=== PATIENT | female | born 1940 | race Caucasian/White ===

== ENCOUNTER 2020-08-25 06:27 | Inpatient (IN) | payer MEDICARE ==
[2020-08-25] MEDS ORDERED: Oxymetazoline HCl 0.05% (30 ML BOT) ONE (06:35)
[2020-08-25] MEDS ORDERED: Dexmedetomidine 200 MCG/2 ML VIAL ONE (07:12)
[2020-08-25] MEDS ORDERED: Ketamine 50 MG/ML (10ML VIAL) ONE (07:12)
[2020-08-25] MEDS ORDERED: Lidocaine 4% Topical Sol 50 ML BOT ONE (07:15)
[2020-08-25] MEDS ORDERED: Midazolam HCl 2 mg/2 ml Vial ONE (07:16)
[2020-08-25] MEDS ORDERED: Fentanyl 100 MCG/2 ML VIAL ONE ×2 (07:16→08:58)
[2020-08-25] MEDS ORDERED: Lidocaine 1% w/Epinephrine 1:100K 20 ML VIAL ONE ×2 (07:16→08:59)
[2020-08-25] MEDS ORDERED: Glycopyrrolate 0.2 MG/ML 5 ML SYRINGE ONE (07:28)
[2020-08-25] MEDS ORDERED: ePHEDrine Sulfate 50 MG/10 ML VIAL ONE (07:28)
[2020-08-25] MEDS ORDERED: PHENYLEPHRINE-NS 100 MCG/ML 10 ML SYRINGE ONE (07:28)
[2020-08-25] MEDS ORDERED: Rocuronium Bromide 10 MG/ML (10ML VIAL) ONE (07:28)
[2020-08-25] MEDS ORDERED: AFRIN NASAL MIST 15 ML BOT ONE (07:38)
[2020-08-25] MEDS ORDERED: Albuterol Sulfate HFA (OR ONLY) ONE (08:07)
[2020-08-25 08:46] LABS: Actual Bicarbonate (HCO3a) 24.9 mEq/L (22-28); Base Excess (BEa) 0.7 mEq/L (-2.0 to +3.0); CO2 Tension 38.7 mmHg (35.0-45.0); Carboxyhemoglobin (COHb) 0.7 gm% (0.0-3.0); Hemoglobin (Hb) 11.7 g/dL (12.0-16.0); Potassium - ABG Lab 3.81 mmol/L (3.70-5.30); pH, Arterial 7.43 (7.35-7.45)
[2020-08-25 08:47] LABS: ALV-art Gradient 192.725 mmHg (0-20); O2 Tension (PaO2), arterial 44.1 mmHg (> 60.0); Puncture Site RBA
[2020-08-25] MEDS ORDERED: Ondansetron PF 4 MG/2 ML Vial IVP PRN (09:06)
[2020-08-25] MEDS ORDERED: Calcium Carbonate 500 MG ChewTAB PO PRN (09:06)
[2020-08-25] MEDS ORDERED: Senokot S 8.6-50 MG TAB PO PRN (09:06)
[2020-08-25] MEDS ORDERED: Electrolyte Replacement Protocol 1 EACH FS ONE (09:06)
[2020-08-25] MEDS ORDERED: Ventilator Sedation Protocol 1 EACH FS ONE (09:06)
[2020-08-25] MEDS ORDERED: Bisacodyl 10 MG SUPP PR PRN (09:06)
[2020-08-25] MEDS ORDERED: Guaifenesin DM 100-10/5 ML UDCUP PO PRN (09:06)
[2020-08-25] MEDS ORDERED: Acetaminophen 650 MG Suppository PR PRN (09:06)
[2020-08-25] MEDS ORDERED: Acetaminophen 325 MG TAB PO PRN (09:06)
[2020-08-25] MEDS ORDERED: Norepinephrine 8 MG/0.9% NS 250 ML IVPB PRN (09:12)
[2020-08-25] MEDS ORDERED: Ventilator Sedation Protocol 1 EACH FS SCH (09:15)
[2020-08-25] MEDS ORDERED: Electrolyte Replacement Protocol 1 EACH FS PRN (09:15)
[2020-08-25] MEDS: Sodium Chloride 0.9% 1,000 ML IV SCH ×2 (09:15→21:13)
[2020-08-25] MEDS ORDERED: Dextrose 5% in Water 1,000 ML IV PRN (09:24)
[2020-08-25] MEDS ORDERED: Dextrose 50% Abboject 50 ML SYRINGE SLOW IVP PRN (09:24)
[2020-08-25] MEDS ORDERED: Fentanyl CADD 100 ML ONE (09:30)
[2020-08-25 09:42] LABS: #Eosinphils 0.1 thou/uL (0.0-0.7); #Lymphocytes 0.8 thou/uL (1.20-3.40); #Monocytes 0.4 thou/uL (0.11-0.59); %Basophils 0.2 % (0.0-1.0); %Eosinophils 1.3 % (0.0-10.0); %Lymphocytes 15.1 % (21.0-51.0); %Monocytes 7.2 % (0.0-10.0); %Neutrophils 76.3 % (42.0-75.0); Hemoglobin 13.2 g/dL (12.0-16.0); Mean Corpuscular HGB CONC 31.2 g/dL (32.0-36.0); Mean Corpuscular Hemoglobin 27.1 pg (27.0-31.0); Mean Platelet Volume 10.3 fL (7.4-10.4); Platelet Count 206 thou/uL (130-400); RBC Distribution Width 14.7 % (11.5-14.5); Red Blood Cell (RBC) Count 4.86 mill/uL (4.20-5.40); White Blood Cell (WBC) Count 5.2 thou/uL (4.8-10.8)
[2020-08-25] MEDS ORDERED: Fentanyl CADD 100 ML IV SCH (09:45)
[2020-08-25] MEDS ORDERED: DISCONTINUE PREVIOUS NARCOTIC PAIN MEDICATIONS AND BENZODIAZEPINES FS SCH (09:45)
[2020-08-25] MEDS ORDERED: Lorazepam 2 MG/ML VIAL SLOW IVP PRN (09:45)
[2020-08-25] MEDS ORDERED: Fentanyl BOLUS 250 ML IVPB PRN (09:45)
[2020-08-25] MEDS ORDERED: Morphine 2 MG/ML VIAL SLOW IVP PRN (09:45)
[2020-08-25] MEDS ORDERED: Propofol BOLUS 1,000 MG/100 ML VIAL IV PRN (09:45)
[2020-08-25 09:50] LABS: PTT 29.5 sec (22.9-36.1); Prothrombin Time 13.8 sec (12.0-14.7)
[2020-08-25 09:52] LABS: Actual Bicarbonate (HCO3a) 24.8 mEq/L (22-28); CO2 Tension 36.4 mmHg (35.0-45.0); Calcium, Ionized (arterial) 1.23 mmol/L (1.12-1.30); Carboxyhemoglobin (COHb) 0.6 gm% (0.0-3.0); Hemoglobin (Hb) 12.1 g/dL (12.0-16.0); O2 Tension (PaO2), arterial 103.7 mmHg (> 60.0); Potassium - ABG Lab 3.92 mmol/L (3.70-5.30); pH, Arterial 7.45 (7.35-7.45)
[2020-08-25 09:55] LABS: Puncture Site RBA
[2020-08-25 10:22] LABS: Ferritin 55.83 ng/mL (10-291); Thyroid Stimulating Hormone 0.7927 uIU/mL (0.35-4.94)
[2020-08-25 11:04] LABS: Albumin 3.3 g/dL (3.4-4.8)
[2020-08-25 11:06] LABS: Calcium 9.3 mg/dL (7.8-10.44); Chloride 101 mmol/L (98-107); Potassium 3.9 mmol/L (3.5-5.1); Sodium 133 mmol/L (136-145)
[2020-08-25 11:07] LABS: Globulin 3.4 g/dL (2.4-3.5); Glucose 184 mg/dL (83-110); Protein, Total 6.7 g/dL (5.8-8.1)
[2020-08-25 11:08] LABS: Anion Gap 16 mmol/L (10-20); Carbon Dioxide 20 mmol/L (23-31)
[2020-08-25 11:09] LABS: Bilirubin, Total 0.5 mg/dL (0.2-1.2)
[2020-08-25 11:10] LABS: Alkaline Phosphatase 49 U/L (40-110); Calc. Creatinine Clearance 94 mL/min (70-130)
[2020-08-25 11:11] LABS: BUN (Urea Nitrogen) 15 mg/dL (9.8-20.1)
[2020-08-25 11:12] LABS: AST (SGOT) 25 U/L (5-34)
[2020-08-25 11:13] LABS: ALT (SGPT) 15 U/L (8-55)
[2020-08-25 11:44] LABS: SARS-CoV-2 NAA Rapid Test Not Detected (NotDetected)
[2020-08-25] MEDS: Propofol 1,000 MG/100 ML VIAL IV PRN ×2 (11:57→20:19)
[2020-08-25] MEDS: methylPREDNISolone Sod Succ 40 MG VIAL IVP SCH ×2 (14:49→21:16)
[2020-08-25] MEDS: HumaLOG 300 UNITS/3 ML VIAL SC PRN (21:16)
[2020-08-25] MEDS: Lantus 1000 UNITS/10 ML VIAL SC SCH (21:16)
[2020-08-25] MEDS: Amiodarone 200 MG TAB PER TUBE SCH (21:17)
[2020-08-26] MEDS ORDERED: Fentanyl CADD 100 ML ONE (03:25)
[2020-08-26 04:27] LABS: Anion Gap 13 mmol/L (10-20); BUN (Urea Nitrogen) 13 mg/dL (9.8-20.1); Calc. Creatinine Clearance 103 mL/min (70-130); Calcium 8.9 mg/dL (7.8-10.44); Carbon Dioxide 24 mmol/L (23-31); Chloride 103 mmol/L (98-107); Glucose 155 mg/dL (83-110); Sodium 136 mmol/L (136-145)
[2020-08-26 05:05] LABS: #Lymphocytes 0.6 thou/uL (1.20-3.40); #Monocytes 0.3 thou/uL (0.11-0.59); #Neutrophils 4.1 thou/uL (1.40-6.50); %Eosinophils 0.3 % (0.0-10.0); %Lymphocytes 11.6 % (21.0-51.0); %Monocytes 6.4 % (0.0-10.0); %Neutrophils 81.8 % (42.0-75.0); Hemoglobin 9.9 g/dL (12.0-16.0); Mean Corpuscular HGB CONC 31.4 g/dL (32.0-36.0); Mean Corpuscular Hemoglobin 27.3 pg (27.0-31.0); Mean Corpuscular Volume 86.9 fL (78.0-98.0); Mean Platelet Volume 9.5 fL (7.4-10.4); Platelet Count 136 thou/uL (130-400); RBC Distribution Width 14.3 % (11.5-14.5); Red Blood Cell (RBC) Count 3.63 mill/uL (4.20-5.40)
[2020-08-26] MEDS: Levothyroxine Sodium 88 MCG TAB PO SCH (05:37)
[2020-08-26] MEDS: Propofol 1,000 MG/100 ML VIAL IV PRN (05:37)
[2020-08-26] MEDS: Sodium Chloride 0.9% 1,000 ML IV SCH (05:38)
[2020-08-26] MEDS: methylPREDNISolone Sod Succ 40 MG VIAL IVP SCH ×3 (05:38→22:27)
[2020-08-26 07:25] LABS: Actual Bicarbonate (HCO3a) 22.8 mEq/L (22-28); Base Excess (BEa) -0.3 mEq/L (-2.0 to +3.0); CO2 Tension 33.3 mmHg (35.0-45.0); Calcium, Ionized (arterial) 1.21 mmol/L (1.12-1.30); Carboxyhemoglobin (COHb) 1.3 gm% (0.0-3.0); Hemoglobin (Hb) 14.9 g/dL (12.0-16.0); Potassium - ABG Lab 3.68 mmol/L (3.70-5.30); pH, Arterial 7.45 (7.35-7.45)
[2020-08-26 07:56] LABS: ALV-art Gradient 109.575 mmHg (0-20); Puncture Site RRA
[2020-08-26] MEDS: Multivitamin W/ Minerals 1 TAB PER TUBE SCH (08:48)
[2020-08-26] MEDS: Enoxaparin Sodium 40 MG/0.4 ML SYRINGE SC SCH (08:48)
[2020-08-26] MEDS: Amiodarone 200 MG TAB PER TUBE SCH ×2 (08:49→22:27)
[2020-08-26] MEDS: Fenofibrate Nanocrystallized 145 MG TAB PO SCH (08:58)
[2020-08-26] MEDS: Atorvastatin Calcium 10 MG TAB PER TUBE SCH (08:59)
[2020-08-26] MEDS: Lantus 1000 UNITS/10 ML VIAL SC SCH ×2 (09:00→22:27)
[2020-08-26] MEDS ORDERED: HYDROcodone/Acetaminophen 5/325 mg Tablet PO PRN (11:35)
[2020-08-26] MEDS ORDERED: DC Sedation Protocol FS ONE (11:36)
[2020-08-26] MEDS ORDERED: Sodium Chloride 0.9% 1,000 ML IV SCH (11:41)
[2020-08-26] MEDS: HumaLOG 300 UNITS/3 ML VIAL SC PRN (18:49)
[2020-08-27] MEDS ORDERED: Budesonide 0.25 MG/2 ML NEB ONE (04:16)
[2020-08-27] MEDS ORDERED: Dexamethasone 4 mg/ml Vial ONE (04:21)
[2020-08-27] MEDS ORDERED: Furosemide 40 MG/4 ML VIAL ONE (04:21)
[2020-08-27 04:26] LABS: #Lymphocytes 0.4 thou/uL (1.20-3.40); #Monocytes 0.3 thou/uL (0.11-0.59); #Neutrophils 6.9 thou/uL (1.40-6.50); %Basophils 0.4 % (0.0-1.0); %Eosinophils 0.3 % (0.0-10.0); %Lymphocytes 5.3 % (21.0-51.0); %Monocytes 4.4 % (0.0-10.0); %Neutrophils 89.6 % (42.0-75.0); Hemoglobin 11.4 g/dL (12.0-16.0); Mean Corpuscular Hemoglobin 27.4 pg (27.0-31.0); Mean Corpuscular Volume 88.2 fL (78.0-98.0); Mean Platelet Volume 8.9 fL (7.4-10.4); Platelet Count 179 thou/uL (130-400); RBC Distribution Width 14.2 % (11.5-14.5); Red Blood Cell (RBC) Count 4.18 mill/uL (4.20-5.40); White Blood Cell (WBC) Count 7.7 thou/uL (4.8-10.8)
[2020-08-27] MEDS ORDERED: Racepinephrine 2.25% 0.5 ML NEB NEB SCH (04:30)
[2020-08-27] MEDS ORDERED: Furosemide 20 MG/2 ML VIAL SLOW IVP SCH ×2 (04:30→14:00)
[2020-08-27] MEDS ORDERED: Dexamethasone 4 mg/ml Vial SLOW IVP SCH ×2 (04:30→22:00)
[2020-08-27 04:43] LABS: Anion Gap 9 mmol/L (10-20); BUN (Urea Nitrogen) 10 mg/dL (9.8-20.1); Calc. Creatinine Clearance 97 mL/min (70-130); Calcium 8.8 mg/dL (7.8-10.44); Carbon Dioxide 30 mmol/L (23-31); Chloride 102 mmol/L (98-107); Glucose 139 mg/dL (83-110); Potassium 4.2 mmol/L (3.5-5.1); Sodium 137 mmol/L (136-145)
[2020-08-27 04:47] LABS: Actual Bicarbonate (HCO3a) 29.1 mEq/L (22-28); Base Excess (BEa) -1.4 mEq/L (-2.0 to +3.0); Calcium, Ionized (arterial) 1.24 mmol/L (1.12-1.30); Carboxyhemoglobin (COHb) 0.7 gm% (0.0-3.0); Hemoglobin (Hb) 13.3 g/dL (12.0-16.0); O2 Tension (PaO2), arterial 67.7 mmHg (> 60.0); Potassium - ABG Lab 4.32 mmol/L (3.70-5.30)
[2020-08-27 04:49] LABS: ALV-art Gradient 544.425 mmHg (0-20); CO2 Tension 80.7 mmHg (35.0-45.0); Puncture Site LRA; pH, Arterial 7.18 (7.35-7.45)
[2020-08-27] MEDS: Levothyroxine Sodium 88 MCG TAB PO SCH (05:21)
[2020-08-27] MEDS: methylPREDNISolone Sod Succ 40 MG VIAL IVP SCH ×3 (06:21→21:38)
[2020-08-27] MEDS ORDERED: Pancrelipase DR 12,000 1 CAP FS PRN (08:15)
[2020-08-27] MEDS ORDERED: Sodium Bicarbonate Tab 325 MG TAB PER TUBE PRN (08:15)
[2020-08-27] MEDS: Enoxaparin Sodium 40 MG/0.4 ML SYRINGE SC SCH (08:18)
[2020-08-27] MEDS: Amiodarone 200 MG TAB PER TUBE SCH ×2 (08:19→21:38)
[2020-08-27] MEDS: Fenofibrate Nanocrystallized 145 MG TAB PO SCH (08:19)
[2020-08-27] MEDS: Atorvastatin Calcium 10 MG TAB PER TUBE SCH (08:19)
[2020-08-27] MEDS: Lantus 1000 UNITS/10 ML VIAL SC SCH ×2 (09:00→21:37)
[2020-08-27] MEDS: Multivitamin W/ Minerals 1 TAB PER TUBE SCH (09:38)
[2020-08-27] MEDS ORDERED: Racepinephrine 2.25% 0.5 ML NEB NEB PRN (12:10)
[2020-08-27] MEDS: HumaLOG 300 UNITS/3 ML VIAL SC PRN (16:32)
[2020-08-27] MEDS: Budesonide 0.5 MG/2 ML NEB NEB SCH (19:33)
[2020-08-28] MEDS: HumaLOG 300 UNITS/3 ML VIAL SC PRN ×3 (04:12→21:20)
[2020-08-28 04:17] LABS: #Lymphocytes 0.2 thou/uL (1.20-3.40); #Monocytes 0.3 thou/uL (0.11-0.59); %Eosinophils 0.3 % (0.0-10.0); %Lymphocytes 6.5 % (21.0-51.0); %Monocytes 7.2 % (0.0-10.0); Hemoglobin 10.1 g/dL (12.0-16.0); Mean Corpuscular HGB CONC 31.5 g/dL (32.0-36.0); Mean Corpuscular Hemoglobin 27.4 pg (27.0-31.0); Mean Corpuscular Volume 87.2 fL (78.0-98.0); Mean Platelet Volume 8.7 fL (7.4-10.4); Platelet Count 139 thou/uL (130-400); RBC Distribution Width 13.7 % (11.5-14.5); Red Blood Cell (RBC) Count 3.69 mill/uL (4.20-5.40); White Blood Cell (WBC) Count 3.5 thou/uL (4.8-10.8)
[2020-08-28 04:39] LABS: Anion Gap 13 mmol/L (10-20); BUN (Urea Nitrogen) 14 mg/dL (9.8-20.1); Calc. Creatinine Clearance 107 mL/min (70-130); Calcium 8.5 mg/dL (7.8-10.44); Carbon Dioxide 31 mmol/L (23-31); Chloride 97 mmol/L (98-107); Glucose 244 mg/dL (83-110); Potassium 3.5 mmol/L (3.5-5.1); Sodium 137 mmol/L (136-145)
[2020-08-28] MEDS: Levothyroxine Sodium 88 MCG TAB PO SCH (06:36)
[2020-08-28] MEDS: methylPREDNISolone Sod Succ 40 MG VIAL IVP SCH (06:37)
[2020-08-28] MEDS: Budesonide 0.5 MG/2 ML NEB NEB SCH ×2 (08:04→20:09)
[2020-08-28] MEDS: Potassium Chloride 20 MEQ in Premix Bag 1 BAG IVPB SCH ×2 (08:14→10:37)
[2020-08-28] MEDS: Dexamethasone 4 mg/ml Vial SLOW IVP SCH ×3 (08:15→21:18)
[2020-08-28] MEDS: Multivitamin W/ Minerals 1 TAB PER TUBE SCH (08:15)
[2020-08-28] MEDS: Fenofibrate Nanocrystallized 145 MG TAB PO SCH (08:15)
[2020-08-28] MEDS: Atorvastatin Calcium 10 MG TAB PER TUBE SCH (08:15)
[2020-08-28] MEDS: Amiodarone 200 MG TAB PER TUBE SCH ×2 (08:15→21:17)
[2020-08-28] MEDS: Enoxaparin Sodium 40 MG/0.4 ML SYRINGE SC SCH (08:16)
[2020-08-28] MEDS: Lantus 1000 UNITS/10 ML VIAL SC SCH ×2 (08:16→21:21)
[2020-08-28] MEDS ORDERED: Pantoprazole 40 MG VIAL IVP SCH (12:45)
[2020-08-28] MEDS: Piperacillin/Tazobactam 3.375 GM in Sodium Chloride 0.9% 100 ML IVPB SCH ×2 (12:52→20:30)
[2020-08-28 14:55] LABS: Potassium 4.3 mmol/L (3.5-5.1)
[2020-08-28] MEDS ORDERED: Ampicillin/Sulbactam 1.5 GM in Sodium Chloride 0.9% 100 ML IVPB SCH (18:00)
[2020-08-28] MEDS: Pantoprazole 40 MG VIAL IVP SCH (21:18)
[2020-08-29] MEDS: Piperacillin/Tazobactam 3.375 GM in Sodium Chloride 0.9% 100 ML IVPB SCH ×4 (01:53→20:01)
[2020-08-29 04:03] LABS: #Lymphocytes 0.4 thou/uL (1.20-3.40); #Monocytes 0.4 thou/uL (0.11-0.59); #Neutrophils 3.5 thou/uL (1.40-6.50); %Basophils 0.2 % (0.0-1.0); %Eosinophils 0.3 % (0.0-10.0); %Lymphocytes 10.3 % (21.0-51.0); %Monocytes 9.2 % (0.0-10.0); %Neutrophils 80.1 % (42.0-75.0); Hemoglobin 11.3 g/dL (12.0-16.0); Mean Corpuscular HGB CONC 30.6 g/dL (32.0-36.0); Mean Corpuscular Hemoglobin 26.9 pg (27.0-31.0); Mean Corpuscular Volume 87.7 fL (78.0-98.0); Mean Platelet Volume 8.7 fL (7.4-10.4); Platelet Count 138 thou/uL (130-400); RBC Distribution Width 13.8 % (11.5-14.5); Red Blood Cell (RBC) Count 4.19 mill/uL (4.20-5.40); White Blood Cell (WBC) Count 4.3 thou/uL (4.8-10.8)
[2020-08-29 04:27] LABS: Anion Gap 12 mmol/L (10-20); BUN (Urea Nitrogen) 15 mg/dL (9.8-20.1); Calc. Creatinine Clearance 103 mL/min (70-130); Carbon Dioxide 35 mmol/L (23-31); Chloride 94 mmol/L (98-107); Glucose 227 mg/dL (83-110); Sodium 137 mmol/L (136-145)
[2020-08-29] MEDS: Levothyroxine Sodium 88 MCG TAB PO SCH (05:02)
[2020-08-29] MEDS: Budesonide 0.5 MG/2 ML NEB NEB SCH ×2 (08:15→19:28)
[2020-08-29] MEDS: Multivitamin W/ Minerals 1 TAB PER TUBE SCH (09:19)
[2020-08-29] MEDS: Enoxaparin Sodium 40 MG/0.4 ML SYRINGE SC SCH (09:19)
[2020-08-29] MEDS: Pantoprazole 40 MG VIAL IVP SCH ×2 (09:19→20:07)
[2020-08-29] MEDS: Amiodarone 200 MG TAB PER TUBE SCH ×2 (09:52→20:07)
[2020-08-29] MEDS: Dexamethasone 4 mg/ml Vial SLOW IVP SCH ×3 (09:52→20:07)
[2020-08-29] MEDS: Lantus 1000 UNITS/10 ML VIAL SC SCH ×2 (09:52→20:08)
[2020-08-29] MEDS: Atorvastatin Calcium 10 MG TAB PER TUBE SCH (09:55)
[2020-08-29] MEDS: Fenofibrate Nanocrystallized 145 MG TAB PO SCH (09:55)
[2020-08-29] MEDS: HumaLOG 300 UNITS/3 ML VIAL SC PRN ×2 (18:17→20:08)
[2020-08-29] MEDS ORDERED: Metoprolol Tartrate 5 MG/5 ML VIAL IVP SCH (21:15)
[2020-08-29] MEDS ORDERED: Metoprolol Tartrate 5 MG/5 ML VIAL IVP PRN (21:20)
[2020-08-30] MEDS: Piperacillin/Tazobactam 3.375 GM in Sodium Chloride 0.9% 100 ML IVPB SCH ×4 (01:51→20:50)
[2020-08-30 04:03] LABS: Anion Gap 11 mmol/L (10-20); BUN (Urea Nitrogen) 17 mg/dL (9.8-20.1); Calc. Creatinine Clearance 99 mL/min (70-130); Calcium 8.9 mg/dL (7.8-10.44); Carbon Dioxide 36 mmol/L (23-31); Chloride 96 mmol/L (98-107); Glucose 219 mg/dL (83-110); Potassium 3.8 mmol/L (3.5-5.1); Sodium 139 mmol/L (136-145)
[2020-08-30 04:51] LABS: #Lymphocytes 0.3 thou/uL (1.20-3.40); #Monocytes 0.3 thou/uL (0.11-0.59); #Neutrophils 3.5 thou/uL (1.40-6.50); %Eosinophils 0.3 % (0.0-10.0); %Lymphocytes 8.3 % (21.0-51.0); %Monocytes 7.6 % (0.0-10.0); %Neutrophils 83.8 % (42.0-75.0); Hemoglobin 10.7 g/dL (12.0-16.0); Mean Corpuscular HGB CONC 29.8 g/dL (32.0-36.0); Mean Corpuscular Hemoglobin 26.2 pg (27.0-31.0); Mean Corpuscular Volume 87.9 fL (78.0-98.0); Mean Platelet Volume 8.4 fL (7.4-10.4); Platelet Count 157 thou/uL (130-400); RBC Distribution Width 13.8 % (11.5-14.5); RBC Morphology Normal; Red Blood Cell (RBC) Count 4.08 mill/uL (4.20-5.40); White Blood Cell (WBC) Count 4.2 thou/uL (4.8-10.8)
[2020-08-30] MEDS: Levothyroxine Sodium 88 MCG TAB PO SCH (05:10)
[2020-08-30] MEDS: Budesonide 0.5 MG/2 ML NEB NEB SCH ×2 (08:11→18:28)
[2020-08-30] MEDS: Enoxaparin Sodium 40 MG/0.4 ML SYRINGE SC SCH (08:50)
[2020-08-30] MEDS: Dexamethasone 4 mg/ml Vial SLOW IVP SCH ×3 (08:52→20:51)
[2020-08-30] MEDS: Multivitamin W/ Minerals 1 TAB PER TUBE SCH (08:58)
[2020-08-30] MEDS: Fenofibrate Nanocrystallized 145 MG TAB PO SCH (08:59)
[2020-08-30] MEDS: Atorvastatin Calcium 10 MG TAB PER TUBE SCH (08:59)
[2020-08-30] MEDS: Pantoprazole 40 MG GRANULES PACKET PER TUBE SCH ×2 (08:59→20:51)
[2020-08-30] MEDS: Amiodarone 200 MG TAB PER TUBE SCH ×2 (09:02→20:51)
[2020-08-30] MEDS: Lantus 1000 UNITS/10 ML VIAL SC SCH ×2 (09:15→21:09)
[2020-08-30] MEDS ORDERED: hydrALAZINE 20 MG/ML VIAL SLOW IVP PRN (13:24)
[2020-08-30] MEDS ORDERED: Lidocaine 1% w/Epinephrine 1:100K 20 ML VIAL ONE (14:29)
[2020-08-30] MEDS ORDERED: EPINEPHrine 1 MG/ML AMP ONE (14:29)
[2020-08-30] MEDS ORDERED: Fentanyl 100 MCG/2 ML VIAL ONE (14:39)
[2020-08-30] MEDS ORDERED: Lidocaine 1% PF 5 ML VIAL ONE (15:03)
[2020-08-30] MEDS ORDERED: Succinylcholine 200 MG/10 ml SYRINGE FS ONE (15:03)
[2020-08-30] MEDS ORDERED: Ondansetron PF 4 MG/2 ML Vial ONE (15:03)
[2020-08-30] MEDS ORDERED: PROPOFOL 200 MG/20 ML VIAL ONE (15:03)
[2020-08-30] MEDS: HumaLOG 300 UNITS/3 ML VIAL SC PRN (21:10)
[2020-08-31] MEDS: Piperacillin/Tazobactam 3.375 GM in Sodium Chloride 0.9% 100 ML IVPB SCH ×2 (02:45→07:51)
[2020-08-31 04:05] LABS: #Lymphocytes 0.5 thou/uL (1.20-3.40); #Monocytes 0.4 thou/uL (0.11-0.59); #Neutrophils 3.8 thou/uL (1.40-6.50); %Eosinophils 0.3 % (0.0-10.0); %Lymphocytes 10.1 % (21.0-51.0); %Monocytes 8.4 % (0.0-10.0); %Neutrophils 81.2 % (42.0-75.0); Hemoglobin 10.9 g/dL (12.0-16.0); Mean Corpuscular HGB CONC 30.8 g/dL (32.0-36.0); Mean Corpuscular Hemoglobin 26.9 pg (27.0-31.0); Mean Corpuscular Volume 87.3 fL (78.0-98.0); Mean Platelet Volume 8.6 fL (7.4-10.4); Platelet Count 163 thou/uL (130-400); RBC Distribution Width 13.7 % (11.5-14.5); Red Blood Cell (RBC) Count 4.07 mill/uL (4.20-5.40); White Blood Cell (WBC) Count 4.6 thou/uL (4.8-10.8)
[2020-08-31 04:23] LABS: Anion Gap 13 mmol/L (10-20); BUN (Urea Nitrogen) 18 mg/dL (9.8-20.1); Calc. Creatinine Clearance 114 mL/min (70-130); Carbon Dioxide 33 mmol/L (23-31); Chloride 98 mmol/L (98-107); Glucose 116 mg/dL (83-110); Potassium 3.5 mmol/L (3.5-5.1); Sodium 140 mmol/L (136-145)
[2020-08-31] MEDS: Budesonide 0.5 MG/2 ML NEB NEB SCH ×2 (07:10→18:47)
[2020-08-31] MEDS: Levothyroxine Sodium 88 MCG TAB PO SCH (07:34)
[2020-08-31] MEDS: Potassium Chloride 20 MEQ in Premix Bag 1 BAG IVPB SCH ×2 (08:36→18:14)
[2020-08-31] MEDS: Enoxaparin Sodium 40 MG/0.4 ML SYRINGE SC SCH (08:39)
[2020-08-31] MEDS: Multivitamin W/ Minerals 1 TAB PER TUBE SCH (08:39)
[2020-08-31] MEDS: Amiodarone 200 MG TAB PER TUBE SCH ×2 (08:39→21:00)
[2020-08-31] MEDS: Atorvastatin Calcium 10 MG TAB PER TUBE SCH (08:39)
[2020-08-31] MEDS: Fenofibrate Nanocrystallized 145 MG TAB PO SCH (08:39)
[2020-08-31] MEDS: predniSONE 20 MG TAB PER TUBE SCH (08:39)
[2020-08-31] MEDS: Pantoprazole 40 MG GRANULES PACKET PER TUBE SCH ×2 (08:40→21:00)
[2020-08-31] MEDS: Lantus 1000 UNITS/10 ML VIAL SC SCH ×2 (08:42→21:01)
[2020-08-31] MEDS ORDERED: Potassium Bicarbonate/Cit Ac 20 MEQ TAB PER TUBE SCH (10:15)
[2020-08-31] MEDS: HumaLOG 300 UNITS/3 ML VIAL SC PRN ×2 (16:36→21:02)
[2020-08-31] MEDS: Amoxicillin/Potassium Clav 875 MG TAB PO SCH (21:00)
[2020-09-01 03:41] LABS: #Eosinphils 0.1 thou/uL (0.0-0.7); #Monocytes 0.5 thou/uL (0.11-0.59); #Neutrophils 3.4 thou/uL (1.40-6.50); %Eosinophils 1.1 % (0.0-10.0); %Lymphocytes 19.9 % (21.0-51.0); %Monocytes 9.7 % (0.0-10.0); %Neutrophils 69.2 % (42.0-75.0); Hemoglobin 10.9 g/dL (12.0-16.0); Mean Corpuscular HGB CONC 29.9 g/dL (32.0-36.0); Mean Platelet Volume 8.7 fL (7.4-10.4); Platelet Count 139 thou/uL (130-400); RBC Distribution Width 13.9 % (11.5-14.5); Red Blood Cell (RBC) Count 4.19 mill/uL (4.20-5.40); White Blood Cell (WBC) Count 4.9 thou/uL (4.8-10.8)
[2020-09-01 03:55] LABS: Anion Gap 13 mmol/L (10-20); BUN (Urea Nitrogen) 24 mg/dL (9.8-20.1); Calc. Creatinine Clearance 99 mL/min (70-130); Calcium 9.2 mg/dL (7.8-10.44); Carbon Dioxide 31 mmol/L (23-31); Chloride 100 mmol/L (98-107); Glucose 165 mg/dL (83-110); Potassium 3.7 mmol/L (3.5-5.1); Sodium 140 mmol/L (136-145)
[2020-09-01] MEDS: Levothyroxine Sodium 88 MCG TAB PO SCH (05:13)
[2020-09-01] MEDS: Budesonide 0.5 MG/2 ML NEB NEB SCH ×2 (07:57→19:42)
[2020-09-01] MEDS: Enoxaparin Sodium 40 MG/0.4 ML SYRINGE SC SCH (08:34)
[2020-09-01] MEDS: Amoxicillin/Potassium Clav 875 MG TAB PO SCH ×2 (08:34→22:43)
[2020-09-01] MEDS: predniSONE 20 MG TAB PER TUBE SCH (08:34)
[2020-09-01] MEDS: Pantoprazole 40 MG GRANULES PACKET PER TUBE SCH ×2 (08:34→21:25)
[2020-09-01] MEDS: Amiodarone 200 MG TAB PER TUBE SCH ×2 (08:34→21:25)
[2020-09-01] MEDS: Atorvastatin Calcium 10 MG TAB PER TUBE SCH (08:35)
[2020-09-01] MEDS: Fenofibrate Nanocrystallized 145 MG TAB PO SCH (08:35)
[2020-09-01] MEDS: Multivitamin W/ Minerals 1 TAB PER TUBE SCH (08:35)
[2020-09-01] MEDS: Lantus 1000 UNITS/10 ML VIAL SC SCH ×2 (08:35→21:26)
[2020-09-01] MEDS: HumaLOG 300 UNITS/3 ML VIAL SC PRN ×2 (18:22→21:25)
[2020-09-02] MEDS ORDERED: Dextrose 50% Abboject 50 ML SYRINGE ONE (00:22)
[2020-09-02 03:42] LABS: #Eosinphils 0.1 thou/uL (0.0-0.7); #Monocytes 0.6 thou/uL (0.11-0.59); #Neutrophils 4.8 thou/uL (1.40-6.50); %Basophils 0.4 % (0.0-1.0); %Lymphocytes 14.9 % (21.0-51.0); %Monocytes 9.3 % (0.0-10.0); %Neutrophils 74.4 % (42.0-75.0); Hemoglobin 11.5 g/dL (12.0-16.0); Mean Corpuscular HGB CONC 30.8 g/dL (32.0-36.0); Mean Corpuscular Hemoglobin 26.7 pg (27.0-31.0); Mean Corpuscular Volume 86.6 fL (78.0-98.0); Mean Platelet Volume 8.8 fL (7.4-10.4); Platelet Count 155 thou/uL (130-400); RBC Distribution Width 14.2 % (11.5-14.5); Red Blood Cell (RBC) Count 4.32 mill/uL (4.20-5.40); White Blood Cell (WBC) Count 6.4 thou/uL (4.8-10.8)
[2020-09-02 04:07] LABS: Anion Gap 15 mmol/L (10-20); BUN (Urea Nitrogen) 21 mg/dL (9.8-20.1); Calc. Creatinine Clearance 114 mL/min (70-130); Calcium 9.3 mg/dL (7.8-10.44); Carbon Dioxide 25 mmol/L (23-31); Chloride 100 mmol/L (98-107); Glucose 89 mg/dL (83-110); Potassium 3.6 mmol/L (3.5-5.1); Sodium 136 mmol/L (136-145)
[2020-09-02] MEDS: Levothyroxine Sodium 88 MCG TAB PO SCH (05:42)
[2020-09-02] MEDS: Budesonide 0.5 MG/2 ML NEB NEB SCH ×2 (08:10→19:33)
[2020-09-02] MEDS: Lantus 1000 UNITS/10 ML VIAL SC SCH ×2 (08:25→20:59)
[2020-09-02] MEDS: Amiodarone 200 MG TAB PER TUBE SCH ×2 (08:31→20:41)
[2020-09-02] MEDS: Atorvastatin Calcium 10 MG TAB PER TUBE SCH (08:32)
[2020-09-02] MEDS: predniSONE 20 MG TAB PER TUBE SCH (08:32)
[2020-09-02] MEDS: Fenofibrate Nanocrystallized 145 MG TAB PO SCH (08:32)
[2020-09-02] MEDS: Enoxaparin Sodium 40 MG/0.4 ML SYRINGE SC SCH (08:32)
[2020-09-02] MEDS: Multivitamin W/ Minerals 1 TAB PER TUBE SCH (08:32)
[2020-09-02] MEDS: Pantoprazole 40 MG GRANULES PACKET PER TUBE SCH ×2 (08:32→20:41)
[2020-09-02] MEDS: Amoxicillin/Potassium Clav 875 MG TAB PO SCH ×2 (12:10→20:40)
[2020-09-02] MEDS: HumaLOG 300 UNITS/3 ML VIAL SC PRN (18:18)
[2020-09-03 04:47] LABS: #Eosinphils 0.1 thou/uL (0.0-0.7); #Lymphocytes 1.1 thou/uL (1.20-3.40); #Monocytes 0.7 thou/uL (0.11-0.59); #Neutrophils 6.5 thou/uL (1.40-6.50); %Basophils 0.1 % (0.0-1.0); %Eosinophils 1.1 % (0.0-10.0); %Lymphocytes 13.4 % (21.0-51.0); %Monocytes 7.9 % (0.0-10.0); %Neutrophils 77.5 % (42.0-75.0); Hemoglobin 11.8 g/dL (12.0-16.0); Mean Corpuscular Hemoglobin 27.6 pg (27.0-31.0); Mean Corpuscular Volume 86.3 fL (78.0-98.0); Mean Platelet Volume 9.7 fL (7.4-10.4); Platelet Count 135 thou/uL (130-400); RBC Distribution Width 14.5 % (11.5-14.5); Red Blood Cell (RBC) Count 4.29 mill/uL (4.20-5.40); White Blood Cell (WBC) Count 8.4 thou/uL (4.8-10.8)
[2020-09-03 05:05] LABS: Anion Gap 13 mmol/L (10-20); BUN (Urea Nitrogen) 20 mg/dL (9.8-20.1); Calc. Creatinine Clearance 103 mL/min (70-130); Calcium 9.6 mg/dL (7.8-10.44); Carbon Dioxide 28 mmol/L (23-31); Chloride 98 mmol/L (98-107); Glucose 147 mg/dL (83-110); Potassium 3.7 mmol/L (3.5-5.1); Sodium 135 mmol/L (136-145)
[2020-09-03] MEDS: Levothyroxine Sodium 88 MCG TAB PO SCH (05:39)
[2020-09-03] MEDS: Budesonide 0.5 MG/2 ML NEB NEB SCH ×2 (06:44→18:44)
[2020-09-03] MEDS: Amiodarone 200 MG TAB PER TUBE SCH ×2 (09:04→20:59)
[2020-09-03] MEDS: predniSONE 20 MG TAB PER TUBE SCH (09:04)
[2020-09-03] MEDS: Amoxicillin/Potassium Clav 875 MG TAB PO SCH ×2 (09:05→20:59)
[2020-09-03] MEDS: Multivitamin W/ Minerals 1 TAB PER TUBE SCH (09:05)
[2020-09-03] MEDS: Fenofibrate Nanocrystallized 145 MG TAB PO SCH (09:05)
[2020-09-03] MEDS: Atorvastatin Calcium 10 MG TAB PER TUBE SCH (09:05)
[2020-09-03] MEDS: Enoxaparin Sodium 40 MG/0.4 ML SYRINGE SC SCH (09:05)
[2020-09-03] MEDS: Pantoprazole 40 MG GRANULES PACKET PER TUBE SCH ×2 (09:05→20:59)
[2020-09-03] MEDS: Lantus 1000 UNITS/10 ML VIAL SC SCH ×2 (09:06→21:17)
[2020-09-03] MEDS ORDERED: predniSONE 20 MG TAB PER TUBE SCH (11:45)
[2020-09-03] MEDS: HumaLOG 300 UNITS/3 ML VIAL SC PRN ×2 (13:04→18:36)
[2020-09-04] MEDS: Levothyroxine Sodium 88 MCG TAB PO SCH (05:29)
[2020-09-04] MEDS: Budesonide 0.5 MG/2 ML NEB NEB SCH ×2 (06:35→20:21)
[2020-09-04] MEDS: Fenofibrate Nanocrystallized 145 MG TAB PO SCH (09:25)
[2020-09-04] MEDS: Pantoprazole 40 MG GRANULES PACKET PER TUBE SCH ×2 (09:26→21:22)
[2020-09-04] MEDS: Amiodarone 200 MG TAB PER TUBE SCH ×2 (09:26→21:22)
[2020-09-04] MEDS: Multivitamin W/ Minerals 1 TAB PER TUBE SCH (09:26)
[2020-09-04] MEDS: Atorvastatin Calcium 10 MG TAB PER TUBE SCH (09:26)
[2020-09-04] MEDS: Enoxaparin Sodium 40 MG/0.4 ML SYRINGE SC SCH (09:26)
[2020-09-04] MEDS: Amoxicillin/Potassium Clav 875 MG TAB PO SCH ×2 (09:26→21:22)
[2020-09-04] MEDS: predniSONE 20 MG TAB PER TUBE SCH (09:26)
[2020-09-04] MEDS: Lantus 1000 UNITS/10 ML VIAL SC SCH ×2 (15:54→20:30)
[2020-09-05 06:49] LABS: #Eosinphils 0.1 thou/uL (0.0-0.7); #Lymphocytes 1.3 thou/uL (1.20-3.40); #Monocytes 0.6 thou/uL (0.11-0.59); #Neutrophils 4.3 thou/uL (1.40-6.50); %Basophils 0.5 % (0.0-1.0); %Eosinophils 2.2 % (0.0-10.0); %Monocytes 8.7 % (0.0-10.0); %Neutrophils 67.5 % (42.0-75.0); Hemoglobin 11.3 g/dL (12.0-16.0); Mean Corpuscular HGB CONC 32.3 g/dL (32.0-36.0); Mean Corpuscular Hemoglobin 27.9 pg (27.0-31.0); Mean Corpuscular Volume 86.3 fL (78.0-98.0); Mean Platelet Volume 9.9 fL (7.4-10.4); Platelet Count 130 thou/uL (130-400); RBC Distribution Width 14.4 % (11.5-14.5); Red Blood Cell (RBC) Count 4.07 mill/uL (4.20-5.40); White Blood Cell (WBC) Count 6.3 thou/uL (4.8-10.8)
[2020-09-05 07:07] LABS: Anion Gap 12 mmol/L (10-20); BUN (Urea Nitrogen) 22 mg/dL (9.8-20.1); Calc. Creatinine Clearance 89 mL/min (70-130); Calcium 9.6 mg/dL (7.8-10.44); Carbon Dioxide 29 mmol/L (23-31); Chloride 101 mmol/L (98-107); Glucose 146 mg/dL (83-110); Potassium 3.5 mmol/L (3.5-5.1); Sodium 138 mmol/L (136-145)
[2020-09-05] MEDS: Levothyroxine Sodium 88 MCG TAB PO SCH (07:26)
[2020-09-05] MEDS: Budesonide 0.5 MG/2 ML NEB NEB SCH ×2 (07:33→19:34)
[2020-09-05] MEDS ORDERED: Potassium Bicarbonate/Cit Ac 20 MEQ TAB PER TUBE SCH (08:15)
[2020-09-05] MEDS: Pantoprazole 40 MG GRANULES PACKET PER TUBE SCH ×2 (09:50→21:34)
[2020-09-05] MEDS: Amoxicillin/Potassium Clav 875 MG TAB PO SCH ×2 (09:50→21:34)
[2020-09-05] MEDS: predniSONE 20 MG TAB PER TUBE SCH (09:50)
[2020-09-05] MEDS: Atorvastatin Calcium 10 MG TAB PER TUBE SCH (09:50)
[2020-09-05] MEDS: Fenofibrate Nanocrystallized 145 MG TAB PO SCH (09:50)
[2020-09-05] MEDS: Enoxaparin Sodium 40 MG/0.4 ML SYRINGE SC SCH (09:51)
[2020-09-05] MEDS: Multivitamin W/ Minerals 1 TAB PER TUBE SCH (09:51)
[2020-09-05] MEDS: Amiodarone 200 MG TAB PER TUBE SCH ×2 (09:51→21:34)
[2020-09-05] MEDS: Lantus 1000 UNITS/10 ML VIAL SC SCH ×2 (11:15→21:34)
[2020-09-06] MEDS: Levothyroxine Sodium 88 MCG TAB PO SCH (06:03)
[2020-09-06] MEDS: Budesonide 0.5 MG/2 ML NEB NEB SCH ×2 (07:13→19:25)
[2020-09-06] MEDS: Amoxicillin/Potassium Clav 875 MG TAB PO SCH ×2 (08:35→21:25)
[2020-09-06] MEDS: Fenofibrate Nanocrystallized 145 MG TAB PO SCH (08:35)
[2020-09-06] MEDS: predniSONE 20 MG TAB PER TUBE SCH (08:36)
[2020-09-06] MEDS: Atorvastatin Calcium 10 MG TAB PER TUBE SCH (08:36)
[2020-09-06] MEDS: Enoxaparin Sodium 40 MG/0.4 ML SYRINGE SC SCH (08:36)
[2020-09-06] MEDS: Multivitamin W/ Minerals 1 TAB PER TUBE SCH (08:36)
[2020-09-06] MEDS: Amiodarone 200 MG TAB PER TUBE SCH ×2 (08:36→21:25)
[2020-09-06] MEDS: Pantoprazole 40 MG GRANULES PACKET PER TUBE SCH ×2 (08:36→21:26)
[2020-09-06] MEDS: Lantus 1000 UNITS/10 ML VIAL SC SCH ×2 (08:37→21:24)
[2020-09-06 12:19] VITALS: BMI 28.8
[2020-09-07] MEDS: Levothyroxine Sodium 88 MCG TAB PO SCH (05:36)
[2020-09-07] MEDS: Budesonide 0.5 MG/2 ML NEB NEB SCH ×2 (06:29→19:05)
[2020-09-07] MEDS: Fenofibrate Nanocrystallized 145 MG TAB PO SCH (08:52)
[2020-09-07] MEDS: Atorvastatin Calcium 10 MG TAB PER TUBE SCH (08:52)
[2020-09-07] MEDS: Amiodarone 200 MG TAB PER TUBE SCH ×2 (08:52→21:23)
[2020-09-07] MEDS: Multivitamin W/ Minerals 1 TAB PER TUBE SCH (08:52)
[2020-09-07] MEDS: Amoxicillin/Potassium Clav 875 MG TAB PO SCH ×2 (08:52→21:23)
[2020-09-07] MEDS: Pantoprazole 40 MG GRANULES PACKET PER TUBE SCH ×2 (08:52→21:23)
[2020-09-07] MEDS: predniSONE 20 MG TAB PER TUBE SCH (08:53)
[2020-09-07] MEDS: Enoxaparin Sodium 40 MG/0.4 ML SYRINGE SC SCH (08:53)
[2020-09-07] MEDS: Lantus 1000 UNITS/10 ML VIAL SC SCH ×2 (08:53→21:20)
[2020-09-07] MEDS: HumaLOG 300 UNITS/3 ML VIAL SC PRN ×2 (14:46→18:13)
[2020-09-08] MEDS: Levothyroxine Sodium 88 MCG TAB PO SCH (05:19)
[2020-09-08] MEDS: Budesonide 0.5 MG/2 ML NEB NEB SCH ×2 (07:08→19:07)
[2020-09-08] MEDS: Enoxaparin Sodium 40 MG/0.4 ML SYRINGE SC SCH (10:16)
[2020-09-08] MEDS: predniSONE 20 MG TAB PER TUBE SCH (10:17)
[2020-09-08] MEDS: Multivitamin W/ Minerals 1 TAB PER TUBE SCH (10:17)
[2020-09-08] MEDS: Fenofibrate Nanocrystallized 145 MG TAB PO SCH (10:17)
[2020-09-08] MEDS: Amiodarone 200 MG TAB PER TUBE SCH ×2 (10:17→20:50)
[2020-09-08] MEDS: Amoxicillin/Potassium Clav 875 MG TAB PO SCH ×2 (10:17→20:50)
[2020-09-08] MEDS: Pantoprazole 40 MG GRANULES PACKET PER TUBE SCH ×2 (10:17→20:51)
[2020-09-08] MEDS: Atorvastatin Calcium 10 MG TAB PER TUBE SCH (10:17)
[2020-09-08] MEDS: Lantus 1000 UNITS/10 ML VIAL SC SCH ×3 (10:19→21:00)
[2020-09-08] MEDS: HumaLOG 300 UNITS/3 ML VIAL SC PRN (18:37)
[2020-09-09] MEDS: Levothyroxine Sodium 88 MCG TAB PO SCH (04:40)
[2020-09-09 08:42] LABS: Anion Gap 13 mmol/L (10-20); BUN (Urea Nitrogen) 18 mg/dL (9.8-20.1); Calc. Creatinine Clearance 98 mL/min (70-130); Calcium 9.6 mg/dL (7.8-10.44); Carbon Dioxide 27 mmol/L (23-31); Chloride 101 mmol/L (98-107); Glucose 145 mg/dL (83-110); Potassium 3.9 mmol/L (3.5-5.1); Sodium 137 mmol/L (136-145)
[2020-09-09] MEDS: Pantoprazole 40 MG GRANULES PACKET PER TUBE SCH ×2 (08:46→21:18)
[2020-09-09] MEDS: Fenofibrate Nanocrystallized 145 MG TAB PO SCH (08:46)
[2020-09-09] MEDS: Amoxicillin/Potassium Clav 875 MG TAB PO SCH ×2 (08:46→21:18)
[2020-09-09] MEDS: predniSONE 20 MG TAB PER TUBE SCH (08:46)
[2020-09-09] MEDS: Atorvastatin Calcium 10 MG TAB PER TUBE SCH (08:46)
[2020-09-09] MEDS: Enoxaparin Sodium 40 MG/0.4 ML SYRINGE SC SCH (08:47)
[2020-09-09] MEDS: Lantus 1000 UNITS/10 ML VIAL SC SCH (08:47)
[2020-09-09] MEDS: Amiodarone 200 MG TAB PER TUBE SCH ×2 (08:47→21:18)
[2020-09-09] MEDS: Multivitamin W/ Minerals 1 TAB PER TUBE SCH (08:47)
[2020-09-09 08:53] LABS: Band 27 % (5-11); Eosinophils 1 % (0-10); Hemoglobin 12.6 g/dL (12.0-16.0); Lymphocytes 22 % (21-51); MDiff Complete? YES; Mean Corpuscular HGB CONC 31.5 g/dL (32.0-36.0); Mean Corpuscular Hemoglobin 26.9 pg (27.0-31.0); Mean Corpuscular Volume 85.5 fL (78.0-98.0); Mean Platelet Volume 10.2 fL (7.4-10.4); Metamyelocyte 3 % (0-0); Monocytes 2 % (0-10); Myelocyte 1 % (0-0); Neutrophil 41 % (42-75); Platelet Count 136 thou/uL (130-400); RBC Distribution Width 14.7 % (11.5-14.5); Reactive Lymphocytes 3 % (0-10); Red Blood Cell (RBC) Count 4.66 mill/uL (4.20-5.40); White Blood Cell (WBC) Count 5.7 thou/uL (4.8-10.8)
[2020-09-09] MEDS: Budesonide 0.5 MG/2 ML NEB NEB SCH ×2 (09:25→18:54)
[2020-09-09] MEDS: HumaLOG 300 UNITS/3 ML VIAL SC PRN ×2 (11:54→17:54)
[2020-09-10] MEDS: Levothyroxine Sodium 88 MCG TAB PO SCH (05:50)
[2020-09-10] MEDS: Budesonide 0.5 MG/2 ML NEB NEB SCH (07:08)
[2020-09-10] MEDS: Fenofibrate Nanocrystallized 145 MG TAB PO SCH (09:23)
[2020-09-10] MEDS: Amoxicillin/Potassium Clav 875 MG TAB PO SCH (09:24)
[2020-09-10] MEDS: Multivitamin W/ Minerals 1 TAB PER TUBE SCH (09:24)
[2020-09-10] MEDS: Pantoprazole 40 MG GRANULES PACKET PER TUBE SCH (09:24)
[2020-09-10] MEDS: Amiodarone 200 MG TAB PER TUBE SCH (09:24)
[2020-09-10] MEDS: Enoxaparin Sodium 40 MG/0.4 ML SYRINGE SC SCH (09:24)
[2020-09-10] MEDS: predniSONE 20 MG TAB PER TUBE SCH (09:24)
[2020-09-10] MEDS: Atorvastatin Calcium 10 MG TAB PER TUBE SCH (09:24)
[2020-09-10] MEDS: Lantus 1000 UNITS/10 ML VIAL SC SCH (09:25)
[2020-09-10] MEDS: HumaLOG 300 UNITS/3 ML VIAL SC PRN (16:40)
[2020-09-10 19:49] VITALS: BP 111/71; TEMP 98.6
== END 2020-09-10 16:51 | DRG 3 ==
LOC: ERS 06:27 → CCU 07:24 → SDC 07:32 → CCU 08:00 → IMCU/EMU 08-31 18:09 → T4-A 09-04 15:22
PROVIDERS: ADMIT Specialist; ATTEND Internal Medicine
PROC: 0BH17EZ Insertion of Endotracheal Airway into Trachea, Via Natural or Artificial Opening (ICD-10-PCS; principal; 2020-08-25)
PROC: 5A1945Z Respiratory Ventilation, 24-96 Consecutive Hours (ICD-10-PCS; 2020-08-25)
PROC: 0W9B00Z Drainage of Left Pleural Cavity with Drainage Device, Open Approach (ICD-10-PCS; 2020-08-25)
PROC: 0B110F4 Bypass Trachea to Cutaneous with Tracheostomy Device, Open Approach (ICD-10-PCS; 2020-08-25)
PROC: 0CJS8ZZ Inspection of Larynx, Via Natural or Artificial Opening Endoscopic (ICD-10-PCS; 2020-08-27)
PROC: 5A09457 Assistance with Respiratory Ventilation, 24-96 Consecutive Hours, Continuous Positive Airway Pressure (ICD-10-PCS; 2020-08-27)
PROC: 0CJS8ZZ Inspection of Larynx, Via Natural or Artificial Opening Endoscopic (ICD-10-PCS; 2020-08-30)
PROC: 0WCQ8ZZ Extirpation of Matter from Respiratory Tract, Via Natural or Artificial Opening Endoscopic (ICD-10-PCS; 2020-08-30)
DX: J96.01 Acute respiratory failure with hypoxia (principal); L89.154 Pressure ulcer of sacral region, stage 4; J93.9 Pneumothorax, unspecified; E44.0 Moderate protein-calorie malnutrition; E03.9 Hypothyroidism, unspecified; E11.9 Type 2 diabetes mellitus without complications; E78.5 Hyperlipidemia, unspecified; I10 Essential (primary) hypertension; K21.9 Gastro-esophageal reflux disease without esophagitis; Z95.2 Presence of prosthetic heart valve; Z95.1 Presence of aortocoronary bypass graft; Z87.891 Personal history of nicotine dependence; Z79.2 Long term (current) use of antibiotics; D64.9 Anemia, unspecified; Z95.0 Presence of cardiac pacemaker; Z86.16 Personal history of COVID-19; I48.0 Paroxysmal atrial fibrillation; M21.372 Foot drop, left foot; M21.371 Foot drop, right foot; J38.6 Stenosis of larynx; Z68.28 Body mass index [BMI] 28.0-28.9, adult; R53.81 Other malaise; Z79.890 Hormone replacement therapy; Z79.4 Long term (current) use of insulin; Z79.899 Other long term (current) drug therapy; Z93.1 Gastrostomy status; J43.8 Other emphysema; Z20.822 Contact with and (suspected) exposure to COVID-19
CPT/HCPCS: 36415; 36416; 36600; 70490; 71045; 74230; 80048; 80053; 82728; 82805; 83880; 84443; 85025; 85610; 85730; 86140; 93005; 93010; 93306; 94002; 94003; 94640; 94660; C9113; J0171; J1100; J1650; J1815; J1940; J1956; J2060; J2250; J2405; J2543; J2704; J2920; J3010; J3480; J3490; J7512; J7620; J7626; U0002